=== PATIENT | female | born 1985 | race Asian ===

== ENCOUNTER 2019-11-29 18:19 | Inpatient (IN) | payer OTHER ==
[~2019-11-29] VITALS: Ht 162.6 cm; Wt 68.0 kg
[2019-11-29] MEDS ORDERED: OXYTOCIN/0.9 % SODIUM CHLORIDE 1,000 ML IV SCH (20:17)
[2019-11-29] MEDS ORDERED: LR 1,000 ML IV ONE (20:17)
[2019-11-29 20:44] LABS: BASOPHILS % (AUTO) 0.5 % (0.0-2.0); EOSINOPHILS % (AUTO) 0.5 % (0.0-4.0); HEMATOCRIT 32.6 % (36-48); LYMPHOCYTES # (AUTO) 1.5 K/uL (1.0-5.5); LYMPHOCYTES % (AUTO) 27.1 % (20.5-51.5); MEAN CORPUSCULAR HEMOGLOBIN 28 pg (27-31); MEAN CORPUSCULAR HGB CONC 34 % (32-36); MEAN CORPUSCULAR VOLUME 84 fL (79.0-98.0); MONOCYTES # (AUTO) 0.6 K/uL (0.0-1.0); NEUTROPHILS # (AUTO) 3.5 K/uL (1.8-7.7); NEUTROPHILS % (AUTO) 61.9 % (40.0-70.0); PLATELET COUNT (AUTO) 243 K/uL (130-430); RED BLOOD CELL COUNT(AUTO) 3.89 MIL/uL (4.2-6.2); RED CELL DISTRIBUTION WIDTH 15.4 % (9.0-15.0); WHITE BLOOD COUNT (AUTO) 5.6 K/uL (4.8-10.8)
[2019-11-29 20:48] VITALS: BP_SYST 119
[2019-11-29] MEDS: LR 1,000 ML IV SCH ×2 (20:50→23:16)
[2019-11-29] MEDS: AMPICILLIN SODIUM 2 GM in NS 100 ML IV SCH ×2 (20:52→21:33)
[2019-11-29] MEDS ORDERED: AMPICILLIN SODIUM 2 GM VIAL ONE (21:14)
[2019-11-29] MEDS ORDERED: DINOPROSTONE 10 MG SUPP VG SCH (21:15)
[2019-11-29] MEDS ORDERED: fentaNYL CITRATE/PF 100 MCG/2 ML AMP ONE (23:13)
[2019-11-29] MEDS ORDERED: ROPIVACAINE HCL/PF 0.2% 200 ML ONE (23:13)
[2019-11-29] MEDS ORDERED: LR 500 ML IV ONE (23:29)
[2019-11-29] MEDS ORDERED: FENT2mCg/mL-ROPIVA0.2%/NS EPID 200 ML EP SCH (23:30)
[2019-11-30] MEDS ORDERED: AMPICILLIN SODIUM 1 GM VIAL ONE ×2 (00:51→05:02)
[2019-11-30] MEDS: AMPICILLIN SODIUM 1 GM in NS 50 ML IV SCH ×3 (01:03→09:10)
[2019-11-30] MEDS: LR 1,000 ML IV SCH ×2 (04:00→12:29)
[2019-11-30] MEDS ORDERED: HYDROcodone/ACETAMIN 5-325 MG TAB (NORCO/ VICODIN) PO PRN (14:30)
[2019-11-30] MEDS ORDERED: OXYCODONE/ACETAMINOPHEN 5-325 TABLET PO PRN (14:30)
[2019-11-30] MEDS ORDERED: METHYLERGONOVINE MALEATE 0.2 MG/ML AMP IM ONE (14:40)
[2019-11-30] MEDS ORDERED: METHYLERGONOVINE MALEATE 0.2 MG/ML AMP ONE (14:41)
[2019-11-30] MEDS ORDERED: WITCH HAZEL LEAF 1 MED.PAD MED.PAD TP PRN (15:45)
[2019-11-30] MEDS ORDERED: DERMOPLAST SPRAY TP PRN (15:45)
[2019-11-30] MEDS: IBUPROFEN 600 MG TABLET PO SCH ×2 (18:14→23:22)
[2019-11-30] MEDS: DOCUSATE SODIUM 100 MG CAPSULE PO PRN (23:21)
[2019-12-01] MEDS: IBUPROFEN 600 MG TABLET PO SCH ×2 (05:35→12:00)
[2019-12-01] MEDS: DOCUSATE SODIUM 100 MG CAPSULE PO PRN (05:35)
[2019-12-01 07:03] LABS: HEMATOCRIT 29.8 % (36-48)
== END 2019-12-01 15:40 | disposition home or self-care (01) | DRG 807 ==
LOC: SPU 19:57
PROVIDERS: ADMIT Obstetrics & Gynecology; ATTEND Obstetrics & Gynecology
PROC: 10E0XZZ Delivery of Products of Conception, External Approach (ICD-10-PCS; principal; 2019-11-30)
PROC: 0HQ9XZZ Repair Perineum Skin, External Approach (ICD-10-PCS; 2019-11-30)
PROC: 3E0R3BZ Introduction of Anesthetic Agent into Spinal Canal, Percutaneous Approach (ICD-10-PCS; 2019-11-30)
PROC: 00HU33Z Insertion of Infusion Device into Spinal Canal, Percutaneous Approach (ICD-10-PCS; 2019-11-30)
DX: O99.824 Streptococcus B carrier state complicating childbirth (principal); Z37.0 Single live birth; O70.0 First degree perineal laceration during delivery; Z3A.39 39 weeks gestation of pregnancy
CPT/HCPCS: 36415; 81002-TC; 85018-TC; 85025; 86592; 86886; 86900; 86901; 94760; J0290; J2210; J2590; J3010; J7120